=== PATIENT | female | born 1940 | race Caucasian/White ===

== ENCOUNTER 2019-03-19 13:01 | Inpatient (IN) | payer MEDICARE, BC ==
[~2019-03-19] VITALS: Ht 154.9 cm; Wt 66.2 kg
[2019-03-19] MEDS ORDERED: SODIUM CHLORIDE 0.9% 1,000 ML IV ONE (14:15)
[2019-03-19 14:20] LABS: BASOPHILS % 0.9 % (0.0-2.0); HEMATOCRIT. 38.3 % (36.0-48.0); HEMOGLOBIN. 13.3 g/dL (12.0-16.0); LYMPHOCYTES % 16.2 % (20.0-50.0); MEAN CORPUSCULAR HEMOGLOBIN 33.3 pg (28.0-32.0); MEAN PLATELET VOLUME 9.8 fl (7.4-10.4); MONOCYTES % 7.6 % (2.0-8.0); NEUTROPHILS % 74.3 % (40.0-76.0); PLATELET 190 x1000/uL (130-400); RED BLOOD CELL COUNT 3.99 mill/uL (4.2-5.4); RED CELL DISTRIBUTION WIDTH 12.8 % (11.6-14.6)
[2019-03-19 14:26] LABS: CHLORIDE 98 mEq/L (98-107)
[2019-03-19 14:31] LABS: ETHANOL BLOOD < 10 mg/dL
[2019-03-19 14:35] LABS: CREATINE KINASE 129 IU/L (26-192)
[2019-03-19 14:38] LABS: CREATINE KINASE MB FRACTION 2.1 ng/mL (0.5-3.6)
[2019-03-19] MEDS ORDERED: POTASSIUM CHLORIDE INJ 40 MEQ in DEXT 5% WATER 250 ML IV NR (15:05)
[2019-03-19 17:56] LABS: *AMPHETAMINES SCREEN URINE NEGATIVE (NEGATIVE); *BARBITURATES SCREEN URINE NEGATIVE (NEGATIVE); *BENZODIAZEPINES SCREEN URINE PRESUMTIVE POSITIVE (NEGATIVE); *COCAINE SCREEN URINE NEGATIVE (NEGATIVE); CANNABINOID URINE SCREEN NEGATIVE (NEGATIVE); METHADONE URINE SCREEN NEGATIVE (NEGATIVE); OPIATES URINE SCREEN NEGATIVE (NEGATIVE); PHENCYCLIDINE URINE SCREEN NEGATIVE (NEGATIVE)
[2019-03-19 21:00] VITALS: BP 159/72
[2019-03-19] MEDS ORDERED: HYDR25TA PO (23:02)
[2019-03-19] MEDS ORDERED: ALPR-392 PO (23:02)
[2019-03-19] MEDS ORDERED: ATEN1TAB42 MT (23:02)
[2019-03-19] MEDS ORDERED: RANI300T4 PO (23:02)
[2019-03-19] MEDS ORDERED: ONDANSETRON HCL 4MG/2ML INJ IV PRN (23:15)
[2019-03-19] MEDS ORDERED: IPRATROPIUM/ALBUTEROL 0.5-3(2.5)MG/3ML NEB NEB PRN (23:15)
[2019-03-19] MEDS ORDERED: HYDROCODONE/ACETAMINOPHEN 5/325MG TABLET PO PRN (23:15)
[2019-03-19] MEDS ORDERED: CLONIDINE 0.1MG TABLET PO PRN (23:15)
[2019-03-19] MEDS ORDERED: DOCUSATE SODIUM 100MG CAPSULE PO PRN (23:15)
[2019-03-19] MEDS ORDERED: MAGNESIUM/ALUMINUM HYDROXIDE/SIMETHICONE 30ML UDC PO PRN (23:15)
[2019-03-20] VITALS (7 sets, daily range): BP systolic 102–126; BP diastolic 50–66
[2019-03-20 00:06] LABS: CHLORIDE 108 mEq/L (98-107)
[2019-03-20] MEDS: SODIUM CHLORIDE 0.9% 1,000 ML IV SCH (01:29)
[2019-03-20 07:31] LABS: CLARITY URINE CLEAR (CLEAR); COLOR URINE YELLOW (YELLOW); KETONES URINE NEGATIVE (NEGATIVE); LEUKOCYTE ESTERASE URINE TRACE (NEGATIVE); NITRITE URINE NEGATIVE (NEGATIVE); OCCULT BLOOD URINE NEGATIVE (NEGATIVE); PROTEIN URINE NEGATIVE (NEGATIVE); SPECIFIC GRAVITY URINE 1.007 (1.005-1.030)
[2019-03-20] MEDS ORDERED: POTASSIUM CHLORIDE INJ 40 MEQ in DEXT 5% WATER 250 ML IV NR (08:00)
[2019-03-20 09:31] LABS: BASOPHILS % 0.6 % (0.0-2.0); EOSINOPHILS % 1.6 % (0.0-5.0); LYMPHOCYTES % 17.8 % (20.0-50.0); MEAN CORPUSCULAR HEMOGLOBIN 33.4 pg (28.0-32.0); MEAN CORPUSCULAR VOLUME 95.6 fL (81.0-99.0); MEAN PLATELET VOLUME 9.9 fl (7.4-10.4); MONOCYTES % 7.4 % (2.0-8.0); NEUTROPHILS % 72.6 % (40.0-76.0); PLATELET 208 x1000/uL (130-400); RED BLOOD CELL COUNT 4.19 mill/uL (4.2-5.4); RED CELL DISTRIBUTION WIDTH 12.7 % (11.6-14.6)
[2019-03-20 09:44] LABS: LDL CHOLESTEROL 66 mg/dL (5-100)
[2019-03-20 09:48] LABS: CREATINE KINASE 93 IU/L (26-192)
[2019-03-20 09:50] LABS: HDL CHOLESTEROL 55 mg/dL (40-59)
[2019-03-20 09:51] LABS: CREATINE KINASE MB FRACTION 1.9 ng/mL (0.5-3.6)
[2019-03-20] MEDS ORDERED: LIDOCAINE HCL 1% 20ML VIAL (Pyxis) INJ ONE (12:23)
[2019-03-20] MEDS ORDERED: SODIUM BICARBONATE 4% (2.4MEQ) 5ML VIAL IV ONE (12:23)
[2019-03-20] MEDS: ENOXAPARIN 40MG/0.4ML SYR SUBCUT SCH (12:32)
[2019-03-20] MEDS ORDERED: MAGNESIUM 2 G PREMIX 50 ML IV NR (15:00)
[2019-03-20 17:05] LABS: CREATINE KINASE 88 IU/L (26-192)
[2019-03-20 17:06] LABS: CREATINE KINASE MB FRACTION 1.6 ng/mL (0.5-3.6)
[2019-03-20] MEDS ORDERED: ATOR10TA69 PO (18:42)
[2019-03-20] MEDS ORDERED: CHOL100046 MT (18:42)
[2019-03-20] MEDS ORDERED: ASPI-1393 MT (18:42)
[2019-03-20] MEDS: ACETAMINOPHEN 325MG TABLET PO PRN (23:02)
[2019-03-21 04:00] VITALS: BP 118/66
[2019-03-21] MEDS: SODIUM CHLORIDE 0.9% 1,000 ML IV SCH (04:18)
[2019-03-21] MEDS: ACETAMINOPHEN 325MG TABLET PO PRN ×3 (07:14→20:22)
[2019-03-21 08:00] VITALS: BP 116/68
[2019-03-21 08:15] LABS: BASOPHILS % 1.2 % (0.0-2.0); EOSINOPHILS % 1.8 % (0.0-5.0); HEMATOCRIT. 40.3 % (36.0-48.0); HEMOGLOBIN. 14.1 g/dL (12.0-16.0); LYMPHOCYTES % 23.7 % (20.0-50.0); MEAN CORPUSCULAR HEMOGLOBIN 33.4 pg (28.0-32.0); MEAN CORPUSCULAR VOLUME 95.4 fL (81.0-99.0); MONOCYTES % 8.5 % (2.0-8.0); NEUTROPHILS % 64.8 % (40.0-76.0); PLATELET 224 x1000/uL (130-400); RED BLOOD CELL COUNT 4.22 mill/uL (4.2-5.4); RED CELL DISTRIBUTION WIDTH 12.8 % (11.6-14.6)
[2019-03-21 08:30] LABS: CHLORIDE 108 mEq/L (98-107)
[2019-03-21] MEDS: ENOXAPARIN 40MG/0.4ML SYR SUBCUT SCH (09:51)
[2019-03-21 12:00] VITALS: BP 124/71
[2019-03-21] MEDS ORDERED: ATOR20TA PO (15:13)
[2019-03-21 16:00] VITALS: BP 110/69
[2019-03-21 20:00] VITALS: BP 131/69
[2019-03-21 23:30] VITALS: BP 155/85
[2019-03-22] MEDS: ACETAMINOPHEN 325MG TABLET PO PRN ×3 (03:32→17:46)
[2019-03-22 04:00] VITALS: BP 142/77
[2019-03-22] MEDS ORDERED: TRAMADOL 50MG TABLET PO PRN (05:00)
[2019-03-22 07:58] LABS: BASOPHILS % 0.8 % (0.0-2.0); EOSINOPHILS % 1.9 % (0.0-5.0); HEMATOCRIT. 38.5 % (36.0-48.0); HEMOGLOBIN. 13.3 g/dL (12.0-16.0); LYMPHOCYTES % 28.8 % (20.0-50.0); MEAN CORPUSCULAR HEMOGLOBIN 33.1 pg (28.0-32.0); MEAN CORPUSCULAR VOLUME 95.6 fL (81.0-99.0); MONOCYTES % 9.3 % (2.0-8.0); NEUTROPHILS % 59.2 % (40.0-76.0); PLATELET 201 x1000/uL (130-400); RED BLOOD CELL COUNT 4.03 mill/uL (4.2-5.4); RED CELL DISTRIBUTION WIDTH 12.4 % (11.6-14.6)
[2019-03-22 08:00] VITALS: BP 143/76
[2019-03-22] MEDS: ENOXAPARIN 40MG/0.4ML SYR SUBCUT SCH (08:39)
[2019-03-22 08:42] LABS: CHLORIDE 104 mEq/L (98-107)
[2019-03-22 12:00] VITALS: BP 150/75
[2019-03-22 16:00] VITALS: BP 136/70
[2019-03-22 18:48] VITALS: BP 125/78
== END 2019-03-22 20:30 | DRG 918 ==
LOC: ER 13:15 → 6WST 18:26 → EDBEDREQ 18:26 → ENRESERV 20:00 → 6WST 03-20 09:11
PROVIDERS: ADMIT Internal Medicine; ATTEND Internal Medicine
DX: T42.4X2A Poisoning by benzodiazepines, intentional self-harm, initial encounter (principal); E87.1 Hypo-osmolality and hyponatremia; E78.5 Hyperlipidemia, unspecified; R00.1 Bradycardia, unspecified; F10.20 Alcohol dependence, uncomplicated; R63.4 Abnormal weight loss; E83.42 Hypomagnesemia; E87.6 Hypokalemia; F32.9 Major depressive disorder, single episode, unspecified; I10 Essential (primary) hypertension; T44.7X2A Poisoning by beta-adrenoreceptor antagonists, intentional self-harm, initial encounter; Y92.89 Other specified places as the place of occurrence of the external cause; Z88.0 Allergy status to penicillin; Z88.5 Allergy status to narcotic agent; Z68.27 Body mass index [BMI] 27.0-27.9, adult
CPT/HCPCS: 36415; 73502; 80048; 80061; 80305; 80307; 80320; 80329; 81003; 82140; 82550; 82553; 82962; 83735; 84132; 84443; 84484; 93005; 93970; 99285; J1650; J3475; J3480; J3490; J7030; J7060; G0480